=== PATIENT | male | born 1990 ===

== ENCOUNTER 2019-06-23 13:16 | Outpatient (CLI) | payer OTHER ==
[~2019-06-23] VITALS: Ht 185.4 cm; Wt 95.3 kg
[2019-06-23 14:17] VITALS: BP 120/69
[2019-06-23] MEDS ORDERED: NO MEDICATION (14:17)
--- NOTE | 2019-06-23 18:45 | Consultation ---
DATE OF CONSULTATION: 06/23/2019 CHIEF COMPLAINT: Abdominal pain. HISTORY OF PRESENT ILLNESS: The patient is a 29-year-old male who has been diagnosed H. pylori infection, status post treatment. After treatment, he started having some GI symptoms including GERD, burning, and now is here for that. PAST MEDICAL HISTORY: H. pylori infection. PAST SURGICAL HISTORY: None. ALLERGIES: None. MEDICATIONS: None. FAMILY HISTORY: No family history of GI malignancies. SOCIAL HISTORY: The patient denies any tobacco, alcohol, or drug abuse. REVIEW OF SYSTEMS: Positive for abdominal pain, GERD, and bloating. PHYSICAL EXAMINATION: VITAL SIGNS: Temperature 98.4, blood pressure 120/69, pulse 77, respirations 20. HEENT: Normocephalic and atraumatic. Sclerae anicteric. NECK: Supple. No evidence of obvious lymphadenopathy. CARDIOVASCULAR: Regular rate and rhythm. Plus S1 and S2. LUNGS: Clear to auscultation bilaterally. ABDOMEN: Positive bowel sounds. Soft and nontender. No rebound. No guarding. No peritoneal sign. EXTREMITIES: No cyanosis, no clubbing, no edema. ASSESSMENT: This is a 29-year-old male with GERD symptoms H. pylori treatment. PLAN: Start omeprazole 40 mg daily for another two months and then taper off after that. We also add for probiotics for gas and bloating. The patient to come back if symptoms not better. Dustin Harris M.D. DR: Herminia JOB#: [id number] CC:
== END 2019-06-23 15:16 | disposition home or self-care (01) ==
LOC: PAN 13:16
DX: R10.9 Unspecified abdominal pain (principal); K21.9 Gastro-esophageal reflux disease without esophagitis; R14.0 Abdominal distension (gaseous)
CPT/HCPCS: G0463